=== PATIENT | male | born 1955 | race Caucasian/White ===

== ENCOUNTER 2020-08-02 06:23 | Day surgery (SDC) | payer OTHER ==
[2020-07-31 11:04] LABS: COVID AG,FIA SOURCE NASOPHARYNGEAL
[~2020-08-02] VITALS: Ht 175.3 cm; Wt 99.1 kg
[~2020-08-02 06:23] MED LIST: ATOR40TA71 PO; MELA3TAB89 PO; METF-960 PO; OMEP20 PO; SERT-439 PO; SPIR50 PO
[2020-08-02] MEDS ORDERED: CHONDR SULF A SOD/HYALURONATE 1.05 ML KIT IO ONE (06:24)
[2020-08-02] MEDS ORDERED: KETOROLAC TROMETHAMINE 0.5% 5 ML OPHTHALMIC SOLUTION ONE (07:04)
[2020-08-02] MEDS ORDERED: PHENYLEPHRINE HCL 2.5% 2 ML OPHTHALMIC SOLUTION ONE (07:04)
[2020-08-02] MEDS ORDERED: RINGERS SOLUTION,LACTATED 500 ML IV ONE ×2 (07:04→08:00)
[2020-08-02] MEDS ORDERED: TROPICAMIDE 1% 2 ML OPHTHALMIC SOLUTION ONE (07:04)
[2020-08-02] MEDS ORDERED: MOXIFLOXACIN HCL 0.5% 3 ML OPHTHALMIC SOLUTION ONE (07:04)
[2020-08-02] MEDS: MOXIFLOXACIN HCL 0.5% 3 ML OPHTHALMIC SOLUTION OD SCH ×3 (09:08→09:21)
[2020-08-02] MEDS: KETOROLAC TROMETHAMINE 0.5% 5 ML OPHTHALMIC SOLUTION OD SCH ×3 (09:09→09:21)
[2020-08-02] MEDS: PHENYLEPHRINE HCL 2.5% 2 ML OPHTHALMIC SOLUTION OD SCH ×3 (09:09→09:21)
[2020-08-02] MEDS: TROPICAMIDE 1% 2 ML OPHTHALMIC SOLUTION OD SCH ×3 (09:09→09:21)
[2020-08-02 09:19] LABS: GLUCOMETER DEV NAME(LOC) SDS.; GLUCOSE,POINT OF CARE 146 MG/DL (70-110)
[2020-08-02] MEDS ORDERED: FentaNYL CITRATE PF 100 MCG/2 ML VIAL IVP ONE (12:00)
[2020-08-02] MEDS ORDERED: MIDAZOLAM HCL 2 MG/2 ML VIAL IVP ONE (12:00)
== END 2020-08-02 11:00 | disposition home or self-care (01) ==
LOC: SURGERY 06:23
PROVIDERS: ATTEND Ophthalmology
DX: E11.36 Type 2 diabetes mellitus with diabetic cataract (principal); H25.11 Age-related nuclear cataract, right eye; E66.9 Obesity, unspecified; E78.00 Pure hypercholesterolemia, unspecified; I10 Essential (primary) hypertension; Z98.890 Other specified postprocedural states; Z79.899 Other long term (current) drug therapy
CPT/HCPCS: 66984; 82962; 87426; 93005; A9575; C9803; J2250; J3010; J7120; V2632

== ENCOUNTER 2020-08-30 07:45 | Day surgery (SDC) | payer OTHER ==
[2020-08-28 10:29] LABS: COVID AG,FIA SOURCE NASOPHARYNGEAL
[~2020-08-30] VITALS: Ht 175.3 cm; Wt 99.0 kg
[~2020-08-30 07:45] MED LIST changes: +KETOROLAC TROMETHAMINE 0.5% 5 ML OPHTHALMIC SOLUTION ONE; +MOXIFLOXACIN HCL 0.5% 3 ML OPHTHALMIC SOLUTION ONE; +PHENYLEPHRINE HCL 2.5% 2 ML OPHTHALMIC SOLUTION ONE; +RINGERS SOLUTION,LACTATED 500 ML IV ONE; +TROPICAMIDE 1% 2 ML OPHTHALMIC SOLUTION ONE
[2020-08-30] MEDS ORDERED: EPINEPHrine 1:1,000 [1 MG/ML] AMP IM ONE (07:46)
[2020-08-30] MEDS ORDERED: LIDOCAINE/PF 1% 2 ML VIAL IM ONE (07:46)
[2020-08-30] MEDS ORDERED: TETRACAINE HCL/PF 0.5% 4 ML OPHTHALMIC SOLUTION OU ONE (07:46)
[2020-08-30] MEDS ORDERED: BALANCED SALT 15 ML OPHTHALMIC IRRIG.SOLN OU ONE (07:46)
[2020-08-30] MEDS ORDERED: HYALURONATE SOD/CHONDROITIN SOD 0.5 ML VIAL IO ONE (07:46)
[2020-08-30] MEDS ORDERED: POVIDONE-IODINE 10% 15 ML SOLUTION UD TP ONE (07:46)
[2020-08-30] MEDS ORDERED: RINGERS SOLUTION,LACTATED 500 ML IV ONE (08:30)
[2020-08-30] MEDS: PHENYLEPHRINE HCL 2.5% 2 ML OPHTHALMIC SOLUTION OS SCH ×3 (10:24→10:30)
[2020-08-30] MEDS: TROPICAMIDE 1% 2 ML OPHTHALMIC SOLUTION OS SCH ×3 (10:24→10:30)
[2020-08-30] MEDS: KETOROLAC TROMETHAMINE 0.5% 5 ML OPHTHALMIC SOLUTION OS SCH ×3 (10:24→10:30)
[2020-08-30] MEDS: MOXIFLOXACIN HCL 0.5% 3 ML OPHTHALMIC SOLUTION OS SCH ×3 (10:24→10:30)
[2020-08-30] MEDS ORDERED: FentaNYL CITRATE PF 100 MCG/2 ML VIAL IVP ONE (12:00)
[2020-08-30] MEDS ORDERED: MIDAZOLAM HCL 2 MG/2 ML VIAL IVP ONE (12:00)
== END 2020-08-30 12:30 | disposition home or self-care (01) ==
LOC: SURGERY 07:45
PROVIDERS: ATTEND Ophthalmology
DX: E11.36 Type 2 diabetes mellitus with diabetic cataract (principal); H25.12 Age-related nuclear cataract, left eye; Z20.822 Contact with and (suspected) exposure to COVID-19; F32.9 Major depressive disorder, single episode, unspecified; J44.9 Chronic obstructive pulmonary disease, unspecified; E66.3 Overweight; Z68.32 Body mass index [BMI] 32.0-32.9, adult; Z79.84 Long term (current) use of oral hypoglycemic drugs; Z79.899 Other long term (current) drug therapy
CPT/HCPCS: 66984; 87426; 93005; C9803; J0171; J2250; J3010; J3490; J7120; V2632